=== PATIENT | female | born 1960 | race African-American/Black ===

== ENCOUNTER 2018-11-20 11:18 | Emergency (ER) | payer OTHER ==
[~2018-11-20] VITALS: Ht 167.6 cm; Wt 88.9 kg
[~2018-11-20 11:18] MED LIST: AMOXICILLIN875 MG PO; ANTIVERT25 MG PO; ASPIRIN325 PO; DEXILANT60 MG PO; LASIX 20 MG TAB20 MG PO; LOPRESSOR50 PO; MECLIZINE 25 MG25 M1 PO; NEXIUM40 MG PO; NORCO 5-325 TA1 EACH PO; OMEPRAZOLE; TOPROL XL25 MG PO; VALIUM5 MG PO; ZOFRAN 4 MG ORAL4 M1 DIS
[2018-11-20] MEDS ORDERED: XANAX 0.25 MG0.25 MG PO (11:28)
[2018-11-20] MEDS ORDERED: TRAMADOL 50 MG50 MG PO (13:38)
[2018-11-20] MEDS ORDERED: NAPROSYN500 MG PO (13:38)
[2018-11-20 14:04] VITALS: BP 148/79
== END 2018-11-20 14:05 | disposition home or self-care (01) ==
LOC: ER 11:18
DX: S16.1XXA Strain of muscle, fascia and tendon at neck level, initial encounter (principal); S80.02XA Contusion of left knee, initial encounter; S80.01XA Contusion of right knee, initial encounter; S49.91XA Unspecified injury of right shoulder and upper arm, initial encounter; M25.572 Pain in left ankle and joints of left foot; M25.571 Pain in right ankle and joints of right foot; I10 Essential (primary) hypertension; K21.9 Gastro-esophageal reflux disease without esophagitis; M54.2 Cervicalgia; Z88.5 Allergy status to narcotic agent; Z88.2 Allergy status to sulfonamides; Z79.82 Long term (current) use of aspirin; Z79.899 Other long term (current) drug therapy; Z90.710 Acquired absence of both cervix and uterus; W19.XXXA Unspecified fall, initial encounter; Y93.89 Activity, other specified; Y92.89 Other specified places as the place of occurrence of the external cause; Y99.9 Unspecified external cause status

== ENCOUNTER 2018-12-03 08:51 | Emergency (ER) | payer OTHER ==
[~2018-12-03] VITALS: Ht 167.6 cm; Wt 88.0 kg
[~2018-12-03 08:51] MED LIST changes: +NAPROSYN500 MG PO; +TRAMADOL 50 MG50 MG PO; +XANAX 0.25 MG0.25 MG PO
[2018-12-03] MEDS ORDERED: FLEXERIL PO (08:59)
[2018-12-03 09:45] LABS: ABSOLUTE NEUTROPHILS 2.6 thou/uL (1.4-8.2); BASOPHILS 1.3 % (0.0-2.0); EOSINOPHILS 0.8 % (0.0-3.0); HEMATOCRIT 39.2 % (37.0-47.0); HEMOGLOBIN 13.3 gm/dL (12.0-15.0); LYMPHOCYTES 32.2 % (24.0-44.0); MCH 28.7 pg (26.0-34.0); MCHC 33.9 g/dL (28.0-37.0); MCV 84.5 fL (80.0-100.0); MONOCYTES 9.4 % (1.0-8.0); PLATELET COUNT 312 thou/uL (150-400); POLYS 56.3 % (36.0-66.0); RBC 4.64 mil/uL (4.20-5.00); RDW 14.4 % (10.5-14.5); WBC 4.6 thou/uL (4.0-11.0)
[2018-12-03 09:51] LABS: ANION GAP 8 mmol/L (7-16); BUN 10 mg/dL (7-18); CALCIUM 9.8 mg/dL (8.5-10.1); CHLORIDE 106 mmol/L (98-107); CO2 27 mmol/L (21-32); CREATININE 0.8 mg/dL (0.6-1.0); GLUCOSE 93 mg/dL (74-106); POTASSIUM 3.7 mmol/L (3.5-5.1); SODIUM 141 mmol/L (136-145)
[2018-12-03 09:59] LABS: TROPONIN-I <0.06 ng/mL (<0.06)
[2018-12-03 10:56] VITALS: BP 120/84
--- NOTE | 2018-12-05 09:04 | EKG ---
[address] [address] ELECTROCARDIOGRAM REPORT Name: FAHAD GUILLORY Room #: [facility]ITAL[id number] Admission: 12/03/18 Attend Phys: Discharge: 12/03/18 Date of : 64 Report #: [id number] THIS REPORT FOR: //name// [facility] ED Test Date: 2018-12-03 Test Time: 08:53:25 Pat Name: FAHAD GUILLORY Department: Room: Gender: F Fingerprint Classifier: BROCK : 1960 Requested By: Ryanne Conn Order Number: [id number] MD: Dakota Canchola Measurements Intervals [place] Rate: 64 P: 35 MO: 206 QRS: 2 QRSD: 90 T: 17 QT: 379 QTc: 391 Interpretive Statements Sinus rhythm Borderline prolonged MO interval Compared to ECG 07/16/2015 00:18:34 No significant changes Electronically Signed On 12-05-2018 9:04:05 CDT by Dakota Canchola [email or web address] <ELECTRONICALLY SIGNED> By: Dakota Canchola MD 12/05/1804 D: 09852 2 Dakota Canchola MD /JOSE
== END 2018-12-03 11:08 | disposition home or self-care (01) ==
LOC: ER 08:51
PROVIDERS: Emergency Medicine
DX: M54.12 Radiculopathy, cervical region (principal); R06.00 Dyspnea, unspecified; L25.9 Unspecified contact dermatitis, unspecified cause; R20.2 Paresthesia of skin; K21.9 Gastro-esophageal reflux disease without esophagitis; I10 Essential (primary) hypertension; Z90.710 Acquired absence of both cervix and uterus; Z88.6 Allergy status to analgesic agent; Z88.2 Allergy status to sulfonamides

== ENCOUNTER 2019-06-22 23:13 | Emergency (ER) | payer OTHER ==
[~2019-06-22] VITALS: Ht 167.6 cm; Wt 79.4 kg
[~2019-06-22 23:13] MED LIST changes: +FLEXERIL PO
[2019-06-22] MEDS ORDERED: LATANOPROST 0.2.5 ML OPHTHALMIC (23:25)
[2019-06-22] MEDS ORDERED: LINZESS290 MCG PO (23:25)
[2019-06-22] MEDS ORDERED: FLOVENT HFA12 GM INH (23:26)
[2019-06-22] MEDS ORDERED: CETIRIZINE HCL10 MG PO (23:27)
[2019-06-23 00:07] LABS: URINE BILIRUBIN NEGATIVE (Negative); URINE BLOOD NEGATIVE (Negative); URINE CLARITY CLEAR; URINE COLOR YELLOW; URINE GLUCOSE-RANDOM* NEGATIVE (Negative); URINE KETONES TRACE (Negative); URINE LEUKOCYTES-REFLEX NEGATIVE (Negative); URINE NITRITE-REFLEX NEGATIVE (Negative); URINE PROTEIN (DIPSTICK) NEGATIVE (Negative); URINE SPECIFIC GRAVITY >= 1.030 (1.005-1.035)
[2019-06-23 00:08] LABS: ABSOLUTE NEUTROPHILS 1.4 thou/uL (1.4-8.2); BASOPHILS 0.8 % (0.0-2.0); EOSINOPHILS 1.9 % (0.0-3.0); HEMATOCRIT 38.9 % (37.0-47.0); HEMOGLOBIN 13.2 gm/dL (12.0-15.0); LYMPHOCYTES 52.5 % (24.0-44.0); MCH 29.7 pg (26.0-34.0); MCV 87.4 fL (80.0-100.0); PLATELET COUNT 307 thou/uL (150-400); POLYS 32.8 % (36.0-66.0); RBC 4.46 mil/uL (4.20-5.00); RDW 14.1 % (10.5-14.5); WBC 4.2 thou/uL (4.0-11.0)
[2019-06-23 00:17] LABS: CALCIUM 8.5 mg/dL (8.5-10.1); CREATININE 0.7 mg/dL (0.6-1.0); POTASSIUM 3.8 mmol/L (3.5-5.1)
[2019-06-23 00:23] LABS: ALBUMIN 3.5 g/dL (3.4-5.0); TOTAL BILIRUBIN 0.4 mg/dL (<0.1-1.0)
[2019-06-23 01:27] VITALS: BP 146/86
== END 2019-06-23 01:28 | disposition home or self-care (01) ==
LOC: ER 23:13
PROVIDERS: Emergency Medicine
DX: R10.11 Right upper quadrant pain (principal); K21.9 Gastro-esophageal reflux disease without esophagitis; I10 Essential (primary) hypertension; Z88.2 Allergy status to sulfonamides; Z88.5 Allergy status to narcotic agent; Z90.710 Acquired absence of both cervix and uterus; Z90.49 Acquired absence of other specified parts of digestive tract; Z98.84 Bariatric surgery status; Z79.899 Other long term (current) drug therapy; Z79.82 Long term (current) use of aspirin